=== PATIENT | male | born 1985 ===

== ENCOUNTER 2020-08-21 08:35 | Inpatient (IN) | payer OTHER, SELFPAY ==
[2020-08-21] VITALS (7 sets, daily range): BP systolic 119–157; BP diastolic 82–108; PULSE 96–104; RESP 18–24; TEMP 36.5–36.7; O2SAT 95–98; BMI 43.8
--- NOTE | 2020-08-21 09:11 | XR_ITS ---
WS: [id number] PORTABLE CHEST HISTORY: dyspnea COMPARISON: None available. Minimal areas of atelectasis in the central LEFT lung. No pneumonia. No pleural effusion or pneumotho rax. Cardiac size: Moderately enlarged cardiac silhouette. Mediastinum/Aorta: Normal mediastinum. No osseous abnormality seen. XR/XR chest 1V portable [id number] IMPRESSION: Enlarged cardiac silhouette. Correlate for possible pericardial effusion by ech ocardiography.
[2020-08-21 09:28] LABS: Basophils % 0.3 %; Eosinophils # 0.1 10^3/uL (0.0-0.8); Hematocrit 46.3 % (42.0-52.0); Hemoglobin 14.8 g/dL (11.7-16.6); Lymphocytes % 27.8 %; Mean Corpuscular Hemoglobin 28.8 pg (28.0-34.0); Mean Corpuscular Volume 90.1 fL (80-94); Mean Platelet Volume 10.9 fL (7.4-10.4); Monocytes # 0.7 10^3/uL (0.2-0.9); Monocytes % 9.8 %; Neutrophils # 4.19 10^3/uL (1.8-7.7); Neutrophils % 59.5 %; Nucleated Red Blood Cells % 0 %; Platelet Count 227 10^3/cmm (130-400); Red Blood Count 5.14 10^6/uL (4.1-5.3); Red Cell Distribution Width 13.5 % (12.1-15.1)
[2020-08-21 09:33] LABS: Fibrinogen 495 mg/dL (174-498)
[2020-08-21 09:34] LABS: Alanine Aminotransferase 26 U/L (0-41); Albumin Level 3.8 g/dL (3.5-5.2); Alkaline Phosphatase 125 IU/L (40-130); Aspartate Amino Transferase 29 U/L (0-40); Blood Urea Nitrogen 24 mg/dL (6-20); C Reactive Protein 9.7 mg/L (0.0-4.9); Calcium 9.1 mg/dL (8.5-10.5); Carbon Dioxide 29 mmol/L (22-29); Chloride 95 mmol/L (98-107); Ferritin 100 ng/mL (30-400); Globulin 3.2 g/dL (1.3-4.6); Glomerular Filtration Rate 128.3 mL/min (90-130); Glucose 296 mg/dL (65-115); Osmolality Calculated 289 mOsm/kg (285-295); Sodium 132 mmol/L (136-145); Total Bilirubin 0.3 mg/dL (0.15-1.2)
--- NOTE | 2020-08-21 09:34 | ED_ITS ---
HPI - Chest Pain General: Chief Complaint: Chest Pain Stated Complaint: CHEST PAIN/ SOB/ COUGH Time Seen by Provider: 08/21/20 08:37 History of Present Illness: HPI narrative: 34-year-old male presents to the emergency room with complaint of shortness of breath the last few days. Is been getting progressively worsening. He is former IV drug user. 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 He has recently had any chest pain he denies any productive cough denies any fever. He is not had any flulike symptoms. He has had a significant cough and shortness of breath not had any chest pain recently. MD complaint: other (Dyspnea on exertion) Onset (ago): day(s) (3) Timing of current episode: constant and increasing Prior episodes: Yes Onset: during exertion Severity: severe Relieving factors: rest Exacerbating factors: exertion Associated symptoms: Reports dyspnea and leg edema; Deny abdominal pain, diaphoresis, fever(s), nausea, palpitations, sense of impending doom, syncope or vomiting Treatment prior to arrival: none Review of Systems Const: Denies: fever(s) or diaphoresis ENMT: Denies: throat pain, ear or mastoid pain, nasal discharge or nasal congestion Card: Denies: palpitations or syncope Resp: Reports: dyspnea GI: Denies: abdominal pain, nausea or vomiting : Denies: flank pain, dysuria, urinary frequency or urinary urgency Skin/Breast: Denies: rash or pruritus PFS ED PFSH: Medical History Cardiomyopathy IV drug abuse Morbid obesity Obstructive sleep apnea Type 2 diabetes mellitus Family History Other CAD (coronary artery disease) Denies family history of Chronic kidney disease (CKD) Social History Smoking and tobacco status: former smoker Alcohol intake: former Substance/Drug Use: current Substance/Drug use type: Marijuana Household members: family Housing: House Physical Exam Const: COMMON NORMALS: no acute distress GENERAL APPEARANCE: cooperative and comfortable ORIENTATION/CONSCIOUSNESS: Yes awake, Yes oriented to person, Yes oriented to place and Yes oriented to time HENMT: COMMON NORMALS: normocephalic, atraumatic and hearing grossly normal bilaterally HEAD & SCALP: normocephalic and atraumatic Neck/C-Spine: COMMON NORMALS: no JVD Resp: COMMON NORMALS: normal respiratory effort, No retractions, No use of accessory muscles and clear to auscultation bilaterally AUSCULTATION: clear to auscultation bilaterally Cardio: COMMON NORMALS: no JVD, regular rate, regular rhythm and No murmurs present (Cardio) RATE: regular rate RHYTHM: regular rhythm GI: COMMON NORMALS: Soft to palpation and No hepatosplenomegaly present AUSCULTATION: Yes normoactive bowel sounds PALPATION: Yes Soft to palpation, No Tenderness to palpation present (GI), No Guarding due to palpation present (GI) and Yes No hepatosplenomegaly present Extremity: GENERAL: Yes edema Neuro: SENSORIUM/ORIENTATION: Yes oriented to person, Yes oriented to place and Yes oriented to time Skin: COMMON NORMALS: no rashes or lesions noted GENERAL SKIN EXAM: no rashes or lesions noted Course Vital Signs: Vital signs: Vital Signs Temperature 97.9 F 08/23/20 20:07 Pulse Rate 81 08/24/20 02:39 Respiratory Rate 13 08/24/20 02:39 Blood Pressure 107/79 08/24/20 02:39 Pulse Oximetry 94 08/24/20 02:39 MDM - Chest Pain MDM Narrative: Medical decision making narrative: Chest x-ray shows si gnificant cardiac enlargement. Echocardiogram shows a estimated 25% EF, no pericardial effusions. Patient stated he has had congestive heart failure issues in the past, however his symptoms have markedly worsens in the last 2 to 3 days. Clinically suspect this represents to the significant worsening of his cardiac status. He has not hypoxia and dyspnea in the ER but no orthopnea no significant swelling increase. Discussed with Dr. Velarde will admit. Lab Data: Labs: Lab Results 08/21/20 08/21/20 08/21/20 Range/Units 07:44 07:44 07:44 WBC 7.0 (4.0-10.0) 10^3/ uL RBC 5.14 (4.1-5.3) 10^6/u L Hgb 14.8 (11.7-16.6) g/dL Hct 46.3 (42.0-52.0) % MCV 90.1 (80-94) fL MCH 28.8 (28.0-34.0) pg MCHC 32.0 (30.0-36.0) g/dL RDW 13.5 (12.1-15.1) % Plt Count 227 (130-400) 10^3/c mm MPV 10.9 H (7.4-10.4) fL Neut % (Auto) 59.5 % Lymph % (Auto) 27.8 % [place] % (Auto) 9.8 % Eos % (Auto) 2.0 % Baso % (Auto) 0.3 % Neut # (Auto) 4.19 (1.8-7.7) 10^3/u L Lymph # (Auto) 2.0 (0.8-4.8) 10^3/u L [place] # (Auto) 0.7 (0.2-0.9) 10^3/u L Eos # (Auto) 0.1 (0.0-0.8) 10^3/u L Baso # (Auto) 0.0 (0.0-0.1) 10^3/u L Nucleated RBC % (a uto) 0 % Nucleated RBCs # 0.0 /100WBC Fibrinogen 495 (174-498) mg/dL D-Dimer 0.32 (0-0.59) ug/mIFE U Specimen Type Sample Site ABG pH (7.35-7.45) ABG pCO2 (35-45) mmHg ABG pO2 (80.0-100.0) mmH g ABG HCO3 (22-26) mmol/L ABG Base Excess (-2.0-2.0) mmol/ L Rey Test Hematocrit (42-52) % O2 Delivery Device FiO2 % Horse Exerciser ID Sodium 132 L (136-145) mmol/L Potassium 4.0 (3.5-5.1) mmol/L Chloride 95 L (98-107) mmol/L Carbon Dioxide 29 (22-29) mmol/L Anion Gap 12.0 (5-19) BUN 24 H (6-20) mg/dL Creatinine 0.7 (0.7-1.2) mg/dL GFR Calculation 128.3 (90-130) mL/min Glucose 296 H (65-115) mg/dL Calculated Osmolal ity 289 (285-295) mOsm/k g Lactic Acid (0.5-2.2) mmol/L Calcium 9.1 (8.5-10.5) mg/dL Iron (59-158) ug/dL TIBC mcg/dl % Saturation (20-50) % Unsat Iron Binding (112-347) ug/dL Ferritin 100 (30-400) ng/mL Total Bilirubin 0.3 (0.15-1.2) mg/dL GGT (8-61) U/L AST 29 (0-40) U/L ALT 26 (0-41) U/L Alkaline Phosphata se 125 (40-130) IU/L Troponin T Baselin e (0-15) ng/L Troponin T 120 Min [place] (0-15) ng/L Delta Troponin T (0-10) ABS# C-Reactive Protein 9.7 H (0.0-4.9) mg/L Total Protein 7.0 (6.6-8.7) g/dL Albumin 3.8 (3.5-5.2) g/dL Globulin 3.2 (1.3-4.6) g/dL Carcinoembryonic A g Vitamin B12 (232-1245) pg/mL Folate (4.5-32.2) ng/mL Procalcitonin (0-0.5) ng/mL TSH (0.27-4.20) uIU/ mL Ethyl Alcohol (0-10) mg/dL Hepatitis A IgM Ab (Nonreactive) Hep Bs Antigen (Nonreactive) Hep Bs Antibody (0-8.5) Hep B Core Total A b (Nonreactive) Hepatitis C Antibo dy (Nonreactive) HIV 1&2 Ab & HIV 1 Ag (Non-Reactiv) HIV 1&2 Antibody (Non-Reactiv) SARS-CoV-2 RNA (RT -PCR) (NOT DETECTED) SARS-CoV-2 Ag (Rap id) (Negative) 08/21/20 08/21/20 08/21/20 Range/Units 07:44 07:44 07:44 WBC (4.0-10.0) 10^3/ uL RBC (4.1-5.3) 10^6/u L Hgb (11.7-16.6) g/dL Hct (42.0-52.0) % MCV (80-94) fL MCH (28.0-34.0) pg MCHC (30.0-36.0) g/dL RDW (12.1-15.1) % Plt Count (130-400) 10^3/c mm MPV (7.4-10.4) fL Neut % (Auto) % Lymph % (Auto) % [place] % (Auto) % Eos % (Auto) % Baso % (Auto) % Neut # (Auto) (1.8-7.7) 10^3/u L Lymph # (Auto) (0.8-4.8) 10^3/u L [place] # (Auto) (0.2-0.9) 10^3/u L Eos # (Auto) (0.0-0.8) 10^3/u L Baso # (Auto) (0.0-0.1) 10^3/u L Nucleated RBC % (a uto) % Nucleated RBCs # /100WBC Fibrinogen (174-498) mg/dL D-Dimer (0-0.59) ug/mIFE U Specimen Type Sample Site ABG pH (7.35-7.45) ABG pCO2 (35-45) mmHg ABG pO2 (80.0-100.0) mmH g ABG HCO3 (22-26) mmol/L ABG Base Excess (-2.0-2.0) mmol/ L Rey Test Hematocrit (42-52) % O2 Delivery Device FiO2 % Horse Exerciser ID Sodium (136-145) mmol/L Potassium (3.5-5.1) mmol/L Chloride (98-107) mmol/L Carbon Dioxide (22-29) mmol/L Anion Gap (5-19) BUN (6-20) mg/dL Creatinine (0.7-1.2) mg/dL GFR Calculation (90-130) mL/min Glucose (65-115) mg/dL Calculated Osmolal ity (285-295) mOsm/k g Lactic Acid (0.5-2.2) mmol/L Calcium (8.5-10.5) mg/dL Iron (59-158) ug/dL TIBC mcg/dl % Saturation (20-50) % Unsat Iron Binding (112-347) ug/dL Ferritin (30-400) ng/mL Total Bilirubin (0.15-1.2) mg/dL GGT (8-61) U/L AST (0-40) U/L ALT (0-41) U/L Alkaline Phosphata se (40-130) IU/L Troponin T Baselin e 20 H (0-15) ng/L Troponin T 120 Min [place] (0-15) ng/L Delta Troponin T (0-10) ABS# C-Reactive Protein (0.0-4.9) mg/L Total Protein (6.6-8.7) g/dL Albumin (3.5-5.2) g/dL Globulin (1.3-4.6) g/dL Carcinoembryonic A g Cancelled Vitamin B12 (232-1245) pg/mL Folate (4.5-32.2) ng/mL Procalcitonin (0-0.5) ng/mL TSH (0.27-4.20) uIU/ mL Ethyl Alcohol < 10 (0-10) mg/dL Hepatitis A IgM Ab (Nonreactive) Hep Bs Antigen (Nonreactive) Hep Bs Antibody (0-8.5) Hep B Core Total A b (Nonreactive) Hepatitis C Antibo dy (Nonreactive) HIV 1&2 Ab & HIV 1 Ag (Non-Reactiv) HIV 1&2 Antibody (Non-Reactiv) SARS-CoV-2 RNA (RT -PCR) (NOT DETECTED) SARS-CoV-2 Ag (Rap id) (Negative) 08/21/20 08/21/20 08/21/20 Range/Units 07:44 07:44 07:44 WBC (4.0-10.0) 10^3/ uL RBC (4.1-5.3) 10^6/u L Hgb (11.7-16.6) g/dL Hct (42.0-52.0) % MCV (80-94) fL MCH (28.0-34.0) pg MCHC (30.0-36.0) g/dL RDW (12.1-15.1) % Plt Count (130-400) 10^3/c mm MPV (7.4-10.4) fL Neut % (Auto) % Lymph % (Auto) % [place] % (Auto) % Eos % (Auto) % Baso % (Auto) % Neut # (Auto) (1.8-7.7) 10^3/u L Lymph # (Auto) (0.8-4.8) 10^3/u L [place] # (Auto) (0.2-0.9) 10^3/u L Eos # (Auto) (0.0-0.8) 10^3/u L Baso # (Auto) (0.0-0.1) 10^3/u L Nucleated RBC % (a uto) % Nucleated RBCs # /100WBC Fibrinogen (174-498) mg/dL D-Dimer (0-0.59) ug/mIFE U Specimen Type Sample Site ABG pH (7.35-7.45) ABG pCO2 (35-45) mmHg ABG pO2 (80.0-100.0) mmH g ABG HCO3 (22-26) mmol/L ABG Base Excess (-2.0-2.0) mmol/ L Rey Test Hematocrit (42-52) % O2 Delivery Device FiO2 % Horse Exerciser ID Sodium (136-145) mmol/L Potassium (3.5-5.1) mmol/L Chloride (98-107) mmol/L Carbon Dioxide (22-29) mmol/L Anion Gap (5-19) BUN (6-20) mg/dL Creatinine (0.7-1.2) mg/dL GFR Calculation (90-130) mL/min Glucose (65-115) mg/dL Calculated Osmolal ity (285-295) mOsm/k g Lactic Acid (0.5-2.2) mmol/L Calcium (8.5-10.5) mg/dL Iron (59-158) ug/dL TIBC mcg/dl % Saturation (20-50) % Unsat Iron Binding (112-347) ug/dL Ferritin (30-400) ng/mL Total Bilirubin (0.15-1.2) mg/dL GGT 70 H (8-61) U/L AST (0-40) U/L ALT (0-41) U/L Alkaline Phosphata se (40-130) IU/L Troponin T Baselin e (0-15) ng/L Troponin T 120 Min [place] (0-15) ng/L Delta Troponin T (0-10) ABS# C-Reactive Protein (0.0-4.9) mg/L Total Protein (6.6-8.7) g/dL Albumin (3.5-5.2) g/dL Globulin (1.3-4.6) g/dL Carcinoembryonic A g Vitamin B12 382 (232-1245) pg/mL Folate (4.5-32.2) ng/mL Procalcitonin (0-0.5) ng/mL TSH (0.27-4.20) uIU/ mL Ethyl Alcohol (0-10) mg/dL Hepatitis A IgM Ab Non-reactive (Nonreactive) Hep Bs Antigen Non-reactive (Nonreactive) Hep Bs Antibody 3.5 (0-8.5) Hep B Core Total A b Non-reactive (Nonreactive) Hepatitis C Antibo dy Non-reactive (Nonreactive) HIV 1&2 Ab & HIV 1 Ag Non-reactive (Non-Reactiv) HIV 1&2 Antibody Non-reactive (Non-Reactiv) SARS-CoV-2 RNA (RT -PCR) (NOT DETECTED) SARS-CoV-2 Ag (Rap id) (Negative) 08/21/20 08/21/20 08/21/20 Range/Units 07:44 09:26 09:36 WBC (4.0-10.0) 10^3/ uL RBC (4.1-5.3) 10^6/u L Hgb (11.7-16.6) g/dL Hct (42.0-52.0) % MCV (80-94) fL MCH (28.0-34.0) pg MCHC (30.0-36.0) g/dL RDW (12.1-15.1) % Plt Count (130-400) 10^3/c mm MPV (7.4-10.4) fL Neut % (Auto) % Lymph % (Auto) % [place] % (Auto) % Eos % (Auto) % Baso % (Auto) % Neut # (Auto) (1.8-7.7) 10^3/u L Lymph # (Auto) (0.8-4.8) 10^3/u L [place] # (Auto) (0.2-0.9) 10^3/u L Eos # (Auto) (0.0-0.8) 10^3/u L Baso # (Auto) (0.0-0.1) 10^3/u L Nucleated RBC % (a uto) % Nucleated RBCs # /100WBC Fibrinogen (174-498) mg/dL D-Dimer (0-0.59) ug/mIFE U Specimen Type Arterial Sample Site Radial, right ABG pH 7.44 (7.35-7.45) ABG pCO2 43.9 (35-45) mmHg ABG pO2 73.8 L (80.0-100.0) mmH g ABG HCO3 29.4 H (22-26) mmol/L ABG Base Excess 4.4 H (-2.0-2.0) mmol/ L Rey Test Pos Hematocrit 45.5 (42-52) % O2 Delivery Device Room air FiO2 21.0 % Horse Exerciser ID Ed Sodium (136-145) mmol/L Potassium (3.5-5.1) mmol/L Chloride (98-107) mmol/L Carbon Dioxide (22-29) mmol/L Anion Gap (5-19) BUN (6-20) mg/dL Creatinine (0.7-1.2) mg/dL GFR Calculation (90-130) mL/min Glucose (65-115) mg/dL Calculated Osmolal ity (285-295) mOsm/k g Lactic Acid 1.4 (0.5-2.2) mmol/L Calcium (8.5-10.5) mg/dL Iron (59-158) ug/dL TIBC mcg/dl % Saturation (20-50) % Unsat Iron Binding (112-347) ug/dL Ferritin (30-400) ng/mL Total Bilirubin (0.15-1.2) mg/dL GGT (8-61) U/L AST (0-40) U/L ALT (0-41) U/L Alkaline Phosphata se (40-130) IU/L Troponin T Baselin e (0-15) ng/L Troponin T 120 Min [place] (0-15) ng/L Delta Troponin T (0-10) ABS# C-Reactive Protein (0.0-4.9) mg/L Total Protein (6.6-8.7) g/dL Albumin (3.5-5.2) g/dL Globulin (1.3-4.6) g/dL Carcinoembryonic A g Vitamin B12 (232-1245) pg/mL Folate 12.7 (4.5-32.2) ng/mL Procalcitonin (0-0.5) ng/mL TSH (0.27-4.20) uIU/ mL Ethyl Alcohol (0-10) mg/dL Hepatitis A IgM Ab (Nonreactive) Hep Bs Antigen (Nonreactive) Hep Bs Antibody (0-8.5) Hep B Core Total A b (Nonreactive) Hepatitis C Antibo dy (Nonreactive) HIV 1&2 Ab & HIV 1 Ag (Non-Reactiv) HIV 1&2 Antibody (Non-Reactiv) SARS-CoV-2 RNA (RT -PCR) (NOT DETECTED) SARS-CoV-2 Ag (Rap id) (Negative) 08/21/20 08/21/20 08/21/20 Range/Units 10:50 12:42 12:42 WBC (4.0-10.0) 10^3/ uL RBC (4.1-5.3) 10^6/u L Hgb (11.7-16.6) g/dL Hct (42.0-52.0) % MCV (80-94) fL MCH (28.0-34.0) pg MCHC (30.0-36.0) g/dL RDW (12.1-15.1) % Plt Count (130-400) 10^3/c mm MPV (7.4-10.4) fL Neut % (Auto) % Lymph % (Auto) % [place] % (Auto) % Eos % (Auto) % Baso % (Auto) % Neut # (Auto) (1.8-7.7) 10^3/u L Lymph # (Auto) (0.8-4.8) 10^3/u L [place] # (Auto) (0.2-0.9) 10^3/u L Eos # (Auto) (0.0-0.8) 10^3/u L Baso # (Auto) (0.0-0.1) 10^3/u L Nucleated RBC % (a uto) % Nucleated RBCs # /100WBC Fibrinogen (174-498) mg/dL D-Dimer (0-0.59) ug/mIFE U Specimen Type Sample Site ABG pH (7.35-7.45) ABG pCO2 (35-45) mmHg ABG pO2 (80.0-100.0) mmH g ABG HCO3 (22-26) mmol/L ABG Base Excess (-2.0-2.0) mmol/ L Rey Test Hematocrit (42-52) % O2 Delivery Device FiO2 % Horse Exerciser ID Sodium (136-145) mmol/L Potassium (3.5-5.1) mmol/L Chloride (98-107) mmol/L Carbon Dioxide (22-29) mmol/L Anion Gap (5-19) BUN (6-20) mg/dL Creatinine (0.7-1.2) mg/dL GFR Calculation (90-130) mL/min Glucose (65-115) mg/dL Calculated Osmolal ity (285-295) mOsm/k g Lactic Acid (0.5-2.2) mmol/L Calcium (8.5-10.5) mg/dL Iron 56 L (59-158) ug/dL TIBC 338 mcg/dl % Saturation 16.5 L (20-50) % Unsat Iron Binding 282 (112-347) ug/dL Ferritin (30-400) ng/mL Total Bilirubin (0.15-1.2) mg/dL GGT (8-61) U/L AST (0-40) U/L ALT (0-41) U/L Alkaline Phosphata se (40-130) IU/L Troponin T Baselin e (0-15) ng/L Troponin T 120 Min [place] 19.07 H (0-15) ng/L Delta Troponin T -0.93 L (0-10) ABS# C-Reactive Protein (0.0-4.9) mg/L Total Protein (6.6-8.7) g/dL Albumin (3.5-5.2) g/dL Globulin (1.3-4.6) g/dL Carcinoembryonic A g Vitamin B12 (232-1245) pg/mL Folate (4.5-32.2) ng/mL Procalcitonin 0.15 (0-0.5) ng/mL TSH (0.27-4.20) uIU/ mL Ethyl Alcohol (0-10) mg/dL Hepatitis A IgM Ab (Nonreactive) Hep Bs Antigen (Nonreactive) Hep Bs Antibody (0-8.5) Hep B Core Total A b (Nonreactive) Hepatitis C Antibo dy (Nonreactive) HIV 1&2 Ab & HIV 1 Ag (Non-Reactiv) HIV 1&2 Antibody (Non-Reactiv) SARS-CoV-2 RNA (RT -PCR) (NOT DETECTED) SARS-CoV-2 Ag (Rap id) Negative (Negative) 08/21/20 08/21/20 Range/Units 12:42 12:45 WBC (4.0-10.0) 10^3/ uL RBC (4.1-5.3) 10^6/u L Hgb (11.7-16.6) g/dL Hct (42.0-52.0) % MCV (80-94) fL MCH (28.0-34.0) pg MCHC (30.0-36.0) g/dL RDW (12.1-15.1) % Plt Count (130-400) 10^3/c mm MPV (7.4-10.4) fL Neut % (Auto) % Lymph % (Auto) % [place] % (Auto) % Eos % (Auto) % Baso % (Auto) % Neut # (Auto) (1.8-7.7) 10^3/u L Lymph # (Auto) (0.8-4.8) 10^3/u L [place] # (Auto) (0.2-0.9) 10^3/u L Eos # (Auto) (0.0-0.8) 10^3/u L Baso # (Auto) (0.0-0.1) 10^3/u L Nucleated RBC % (a uto) % Nucleated RBCs # /100WBC Fibrinogen (174-498) mg/dL D-Dimer (0-0.59) ug/mIFE U Specimen Type Sample Site ABG pH (7.35-7.45) ABG pCO2 (35-45) mmHg ABG pO2 (80.0-100.0) mmH g ABG HCO3 (22-26) mmol/L ABG Base Excess (-2.0-2.0) mmol/ L Rey Test Hematocrit (42-52) % O2 Delivery Device FiO2 % Horse Exerciser ID Sodium (136-145) mmol/L Potassium (3.5-5.1) mmol/L Chloride (98-107) mmol/L Carbon Dioxide (22-29) mmol/L Anion Gap (5-19) BUN (6-20) mg/dL Creatinine (0.7-1.2) mg/dL GFR Calculation (90-130) mL/min Glucose (65-115) mg/dL Calculated Osmolal ity (285-295) mOsm/k g Lactic Acid (0.5-2.2) mmol/L Calcium (8.5-10.5) mg/dL Iron (59-158) ug/dL TIBC mcg/dl % Saturation (20-50) % Unsat Iron Binding (112-347) ug/dL Ferritin (30-400) ng/mL Total Bilirubin (0.15-1.2) mg/dL GGT (8-61) U/L AST (0-40) U/L ALT (0-41) U/L Alkaline Phosphata se (40-130) IU/L Troponin T Baselin e (0-15) ng/L Troponin T 120 Min [place] (0-15) ng/L Delta Troponin T (0-10) ABS# C-Reactive Protein (0.0-4.9) mg/L Total Protein (6.6-8.7) g/dL Albumin (3.5-5.2) g/dL Globulin (1.3-4.6) g/dL Carcinoembryonic A g Vitamin B12 (232-1245) pg/mL Folate (4.5-32.2) ng/mL Procalcitonin (0-0.5) ng/mL TSH 1.63 (0.27-4.20) uIU/ mL Ethyl Alcohol (0-10) mg/dL Hepatitis A IgM Ab (Nonreactive) Hep Bs Antigen (Nonreactive) Hep Bs Antibody (0-8.5) Hep B Core Total A b (Nonreactive) Hepatitis C Antibo dy (Nonreactive) HIV 1&2 Ab & HIV 1 Ag (Non-Reactiv) HIV 1&2 Antibody (Non-Reactiv) SARS-CoV-2 RNA (RT -PCR) Not detected (NOT DETECTED) SARS-CoV-2 Ag (Rap id) (Negative) Discharge Plan Discharge Patient Disposition: Admitted As Inpatient Admit Provider: Sandoval Gracia Clinical Impression: CHF (congestive heart failure), NYHA class III, Cardiomyopathy, Type 2 diabetes mellitus, Morbid obesity, Hypoxia Condition: Stable Interventions: ED Discharge Assessment Last Done: 08/21/20 14:54 ED Charges Last Done: 08/21/20 14:54 Discharge Date/Time: 08/21/20 15:15 Coding Level of Care Code ED Textile Engineer for Chg Fwd Exam Comprehensive
[2020-08-21 09:36] LABS: ABG PCO2 43.9 mmHg (35-45); ABG PH Result 7.44 (7.35-7.45); Arterial Blood Gas Hematocrit 45.5 % (42-52); Base Excess ABG 4.4 mmol/L (-2.0-2.0); Blood Gas Allen Test Pos; Blood Gas Sample Type Arterial; HCO3 ABG 29.4 mmol/L (22-26); PO2 ABG 73.8 mmHg (80.0-100.0)
[2020-08-21 09:36] LABS: D Dimer 0.32 ug/mIFEU (0-0.59)
[2020-08-21 09:37] LABS: Blood Gas Operator Identificat ED; Blood Gas Sample Site Radial, right; Oxygen Device ROOM AIR
--- NOTE | 2020-08-21 09:46 | PC.NURSE ---
Pt complaining that he couldn't breath. O2 90-91%. Sat pt up in bed, 02 increased to 96% room air.
--- NOTE | 2020-08-21 09:54 | USCV_ITS ---
MenjivarRoberto Age: 34 Gender: M : 1985 Exam Date: 08/21/2020 10:56 Ordering Phys: Sy Desai DO Technologist: Ruth Bright Exam Location: [facility] – [place] Indication: PC EFFUSION BP: / HR: 101 Rhythm: Sinus Technical Quality: Fair MEASUREMENTS (Male / Female) Normal Values 2D ECHO LV Diastolic Diameter PLAX 5.9 cm 4.2 - 5.9 / 3.9 - 5.3 cm LV Systolic Diameter PLAX 5.8 cm IVS Diastolic Thickness 0.8 cm 0.6 - 1.0 / 0.6 - 0.9 cm IVS Systolic Thickness 1.0 cm LVPW Diastolic Thickness 1.2 cm 0.6 - 1.0 / 0.6 - 0.9 cm LVPW Systolic Thickness 1.2 cm LVOT Diameter 2.1 cm LV Ejection Fraction 2D Teich 2.7 % LV Ejection Fraction MOD 2C 37.6 % LV Ejection Fraction 2C AL 39.2 % LA Diameter 3.7 cm LA Width 4.6 cm LA Height 5.9 cm RA Width 5.4 cm RA Height 5.4 cm M-MODE LV Diastolic Diameter MM 6.2 cm 4.2 - 5.9 / 3.9 - 5.3 cm LV Systolic Diameter MM 5.3 cm LV Ejection Fraction MM Teich 29.8 % IVS Diastolic Thickness MM 1.0 cm 0.6 - 1.0 / 0.6 - 0.9 cm IVS Systolic Thickness MM 0.7 cm LVPW Diastolic Thickness MM 1.0 cm 0.6 - 1.0 / 0.6 - 0.9 cm LVPW Systolic Thickness MM 1.1 cm Aortic Annulus Diameter 3.3 cm LA Ao Ratio MM 1.0 MV E Point Septal Separation 1.6 cm DOPPLER AV Peak Velocity 86.0 cm/s LVOT Peak Velocity 72.0 cm/s AV Area Cont Eq vti 3.2 cm squared AV Area Cont Eq pk 3.0 cm squared MV Peak Velocity 126.0 cm/s MV Area PHT 5.8 cm squared Mitral E to A Ratio 10.2 MV E' Velocity 58.0 cm/s Mitral E to MV E' Ratio 19.9 Mitral E to LV E' Lateral Ratio 19.6 Mitral E to LV E' Septal Ratio 20.7 TR Peak Velocity 231.0 cm/s TR Peak Gradient 21.3 mmHg Right Atrial Pressure 3.0 mmHg Pulmonary Artery Systolic Pressu 24.3 mmHg PV Peak Velocity 69.3 cm/s RV Acceleration Time 0.1 s FINDINGS Left Ventricle Mildly dilated left ventricle. diffuse hypokinesia of the left ventricle with an ejection fraction of 38%. Right Ventricle Mildly dilated right ventricle with a slightly reduced ejection fraction Right Atrium Moderately increased right atrial size. Left Atrium Moderately increased left atrial size. Mitral Valve Thickened mitral valve. Mild mitral valve regurgitation. Aortic Valve Thickened aortic valve. Tricuspid Valve No gross abnormalities noted.mild tricuspid valve regurgitation. Pulmonic Valve Pulmonic valve not well visualized. Pericardium No pericardial effusion. Aorta Normal aortic annulus size. CONCLUSIONS Mildly dilated left ventricle. Diffuse hypokinesia of the left ventricle with an ejection fraction of 38%. Mildly dilated right ventricle with a slightly reduced ejection fraction. Moderate biatrial enlargement Thickened aortic and mitral valves Mild tricuspid valve regurgitation. Mild mitral regurgitation Normal pulmonary artery pressure There is no pericardial effusion. There are no intracardiac masses. No previous study is available for comparison. Technically difficult study because of the poor ultrasonic window Dr Emiliano Branch MD FACC (Electronically Signed) Final Date: 21 August 2020 17:07 S
[2020-08-21 10:00] LABS: Lactic Sepsis W/Reflex 1.4 mmol/L (0.5-2.2)
--- NOTE | 2020-08-21 10:11 | ECG_ITS ---
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 Measurements Intervals [place] Rate: 104 P: 61 AR: 148 QRS: -58 QRSD: 98 T: 54 QT: 426 QTc: 562 Interpretive Statements SINUS TACHYCARDIA LEFT ATRIAL ENLARGEMENT [-0.15mV P WAVE IN V1/V2] LEFT ANTERIOR FASCICULAR BLOCK [QRS AXIS <= -45, QR IN I, RS IN II] No previous ECG available for comparison Electronically Signed On 08-21-2020 17:58:41 CDT by Kathleen Cheema M.D. [id number]
--- NOTE | 2020-08-21 11:16 | PC.NURSE ---
US AT BEDSIDE WITH PATIENT FOR ECHO
--- NOTE | 2020-08-21 11:27 | ECG_ITS ---
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 Measurements Intervals [place] Rate: 96 P: 57 MN: 180 QRS: -70 QRSD: 96 T: 59 QT: 389 QTc: 492 Interpretive Statements SINUS RHYTHM LEFT ATRIAL ENLARGEMENT [-0.15mV P WAVE IN V1/V2] LEFT AXIS DEVIATION [QRS AXIS < -30] Compared to ECG 08/21/2020 08:39:51 Left-axis deviation now present Sinus tachycardia no longer present Left anterior fascicular block no longer present Electronically Signed On 08-21-2020 17:56:39 CDT by Kathleen Cheema M.D. [id number]
[2020-08-21 11:31] LABS: SARS Covid-2 Antigen Negative (Negative)
[2020-08-21 12:27] LABS: Troponin(5th) Baseline 20 ng/L (0-15)
[2020-08-21 13:19] LABS: Troponin 5 2HR 19.07 ng/L (0-15)
--- NOTE | 2020-08-21 13:27 | ECG_ITS ---
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 Measurements Intervals [place] Rate: 97 P: 54 IA: 152 QRS: -59 QRSD: 96 T: 61 QT: 396 QTc: 504 Interpretive Statements SINUS RHYTHM LEFT ATRIAL ENLARGEMENT [-0.15mV P WAVE IN V1/V2] LEFT AXIS DEVIATION [QRS AXIS < -30] Compared to ECG 08/21/2020 11:47:30 No significant changes Electronically Signed On 08-21-2020 18:14:48 CDT by Kathleen Cheema M.D. [id number]
[2020-08-21 13:30] LABS: Troponin 5 2HR Delta -0.93 ABS# (0-10)
[2020-08-21 13:45] LABS: Procalcitonin 0.15 ng/mL (0-0.5)
[2020-08-21 13:46] LABS: Thyroid Stimulating Hormone 1.63 uIU/mL (0.27-4.20)
[2020-08-21 13:57] LABS: Iron 56 ug/dL (59-158); Percent Saturation 16.5 % (20-50); Total Iron Binding Capacity 338 mcg/dl; Unsaturated Iron Binding 282 ug/dL (112-347)
[2020-08-21] MEDS: FUROsemide 10 mg/mL SDV 4mL 40 MG IVP ×2 (14:07→17:09)
--- NOTE | 2020-08-21 14:28 | PM.HP ---
Providers/Chief Complaint Admitting Physician: Sandoval Gracia MD Chief Complaint: CHEST PAIN/ SOB/ COUGH History of Present Illness Roberto Menjivar is a 34 year old male with past medical history of IV drug abuser with last apparent drug use 3 years ago, possible cardiomyopathy, type 2 diabetes mellitus current marijuana use who presented to the ER today with worsening shortness of breath on exertion for last 3 days. He stated since today morning he started having more chest tightness and difficulty in breathing so he came to the ER. 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 He states every day usually he can work from 12 to 14 hours without any difficulty but for last 3 days he has been having more difficulty in breathing than usual. He does not follow-up with any primary care provider and is only on 2 medications at present. He states he was worked up with a possible treadmill stress test 3 years ago and was apparently told that his weak heart is because of poor blood supply(though documents are not present). He denies of having any fever, nausea, vomiting, flulike symptoms, any recent exposure to known COVID-19, chest pain. Blood work in the ER showed a white count of 7000, hemoglobin of 14.8, platelet count of 227, D-dimer of 0.32, ABG showing a pH of 7.44, PCO2 43.9, PO2 of 73.8, sodium of 132, chloride of 95, BUN of 24, creatinine of 0.7, lactate of 1.4, AST/ALT of 29/26, baseline troponin of 20 with delta -0.9 in 2 hours, CRP of 9.7 with rapid COVID-19 antigen negative. Review of Systems General: Reports: 10 or more systems reviewed and unremarkable except in HPI and below Const: Denies: fever(s), chills, body aches, change in appetite, change in weight, malaise, night sweats, diaphoresis, change in sleep pattern, daytime sleepiness or snoring Eyes: Denies: change in vision, blurry vision, photophobia, eye discomfort or eye discharge ENMT: Denies: throat pain, enlarged tonsils, hoarseness, mouth pain, oral sores, dry mouth, tinnitus, nasal congestion or post nasal drip Card: Denies: chest pain, palpitations, irregular heart rhythm, edema, swelling of feet/ankles, lightheadedness, syncope, pre-syncope, dyspnea on exertion, orthopnea, leg pain with exertion or acrocyanosis Resp: Denies: dyspnea, productive cough, non-productive cough, wheezing, stridor, pain on inspiration, change in phlegm color, hemoptysis or chest congestion GI: Denies: abdominal pain, nausea, vomiting, hematemesis, coffee ground emesis, dysphagia, heartburn, diarrhea, constipation, bloating, GI cramping, change in bowel habits, pain on defecation, hematochezia or melena : Denies: flank pain, difficulty urinating, dysuria, urinary frequency, urinary urgency, urinary hesitancy, urinary dribbling, difficulty starting urination, change in urine stream, nocturia or hematuria Musc: Denies: neck pain, back pain, extremity pain, joint pain, joint swelling, joint redness, joint stiffness or limited range of motion Neuro: Denies: headache(s), numbness in extremities, weakness in extremities, sensory changes, lack of coordination, difficulty walking, frequent falls, dizziness, vertigo, confusion, Slurred speech present, difficulty communicating thoughts or seizure-like activity Psych: Denies: anxiety, depression, mood swings, panic attacks, hopelessness or irritability Endo: Denies: polyuria, polydipsia, tired all the time, cold intolerance, excessive sweating, flushing or heat intolerance Jonathan/Lymph: Denies: easy bruising or easy bleeding All/Imm: Denies: tongue swelling, facial swelling or acute wheezing Medications/Allergies Home Medications Medication Instructions Recorded Confirmed Last Taken Type insulin asp prt-insulin aspart See Rx Instructions .ROUTE .COMPLEX 08/21/20 08/21/20 08/20/20 History [Novolog Mix 70-30 U-100 Insuln] torsemide 40 mg PO DAILY 08/21/20 08/21/20 08/20/20 History Allergies Allergy/AdvReac Type Severity Reaction Status Date / Time No Known Allergies Allergy Verified 08/21/20 08:51 PFSH Acute PFSH: Medical History (Updated 08/21/20 @ 16:34 by Sandoval Gracia MD) Cardiomyopathy IV drug abuse Type 2 diabetes mellitus Family History (Updated 08/21/20 @ 16:19 by Sandoval Gracia MD) Other CAD (coronary artery disease) Denies family history of Chronic kidney disease (CKD) Social History (Updated 08/21/20 @ 16:22 by Sandoval Gracia MD) Smoking and tobacco status: former smoker Alcohol intake: former Substance/Drug Use: current Substance/Drug use type: Marijuana Household members: family Housing: House Vitals/I&O/Wt Last Vital Signs Temp 97.7 F 08/21/20 08:36 Pulse 100 08/21/20 12:50 Resp 24 H 08/21/20 12:50 BP 141/102 08/21/20 12:50 Pulse Ox 95 08/21/20 12:50 Weight last 48 hrs Weight 127.006 kg Physical Exam Narrative: EXAM NARRATIVE: General: No acute distress, AO x3, morbidly obese, anxious HEENT: PERRLA, pupils bilaterally equal and reactive Chest: Normal vesicular breath sounds, lateral lower zone fine crackle equal good air entry bilaterally CVS: S1-S2 regular, apex shifted laterally and outside, pansystolic murmur at apex 3/6 radiating to axilla, S3 gallop, no tachycardia, no gallops, no rubs Abdomen: Soft, nontender, no organomegaly, bowel sounds present Neuro: No focal deficits, no facial deformity, AO x3, power 5/5 in all limbs Data : 08/21/20 07:44 08/21/20 07:44 A&P Assessment and plan (1) Hypoxia: Status: Acute (2) CHF (congestive heart failure), NYHA class III: Status: Acute (3) Cardiomyopathy: Status: Acute (4) Type 2 diabetes mellitus: Status: Acute (5) Hyponatremia: Most likely hypervolemic hyponatremia. Diuretics as above. Continue to monitor sodium levels daily. Patient at present patient does not have any symptoms of hyponatremia. Status: Acute Additional A&P Information Hypoxia: Because of congestive heart failure: NYHA class III. Patient states she has a history of cardiomyopathy in the past but not sure what kind of cardiomyopathy. Patient does give history of IV drug abuse in the past and marijuana use at present. Check urine drug screen, alcohol level, TSH, procalcitonin, vitamin B12, HIV, hepatitis panel, folate levels. D-dimer negative so chances of PE or thromboembolic event is low. Echocardiogram done in the ER. IV Lasix 40 mg twice daily. Strict input output charting. Daily weights. Oxygen supplementation keeping saturation over 90%. Fluid restriction to 1500 cc Patient most likely requires work-up to rule out ischemic cardiomyopathy. Most likely will require Lexiscan before discharge. Patient is aware and agreeable to same. For now start patient on Coreg 6.25 mg twice daily. Will add YARA inhibitor/ARB as per the blood pressures in next 48 hours. We will also try to add spironolactone depending on the blood pressure and renal functions. Rapid Covid antigen was negative in the ER. Covid PCR to [employer] has been sent from the ER. Chances of COVID-19 pneumonia are low. Isolation precaution for now until the results come back. Type 2 diabetes mellitus: Check HbA1c, lipid panel. Insulin sliding scale at high-dose protocol. Xanax 0.25 3 times daily if needed for anxiety Carb consistent low-salt diet. Heparin for DVT prophylaxis Famotidine for PUD prophylaxis Case management consult as patient does not have any insurance at present and would most likely need a primary care provider at [facility]. Attestations Medical Necessity Statement*: Admission for more than 2 midnights because of further management and work-up of hypoxia because of congestive heart failure, COVID-19 not ruled out Time Spent in Patient Care: Greater than 35 minutes (>than 50% of time spent in counselling and/or direct pt care on unit). Coding Level of Care Code Acute Catalogue Maker for Patt Galeano Diagnoses Hypoxia R09.02 CHF (congestive heart failure), NYHA class III I50.9 Cardiomyopathy I42.9 Type 2 diabetes mellitus E11.9 Hyponatremia E87.1
--- NOTE | 2020-08-21 14:36 | PC.NURSE ---
Attempted to call report at [phone], was placed on hold for 3.5 minutes before hanging up to attend to other patients
[2020-08-21 14:44] LABS: Troponin 5 6HR 18.31 ng/L (0-15)
[2020-08-21 14:45] LABS: Troponin 5 6HR Delta -1.69 ng/L (0-12)
[2020-08-21 16:04] LABS: Glucose Point of Care 317 mg/dL (70-110)
[2020-08-21 16:49] LABS: Alcohol Level < 10 mg/dL (0-10)
[2020-08-21] MEDS: carvedilol 6.25 mg Tablet PO (17:06)
[2020-08-21] MEDS: heparin 5,000 unit/mL INJ 1 mL 5000 UNIT SUBCUT (17:08)
[2020-08-21] MEDS: famotidine 20 mg/2 mL INJ IVP (17:09)
[2020-08-21] MEDS: acetaminophen 325 mg Tablet 650 MG PO (17:09)
[2020-08-21] MEDS: ALPRAZolam 0.25 mg Tablet PO ×2 (17:11→23:14)
--- NOTE | 2020-08-21 17:27 | ECG_ITS ---
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 Measurements Intervals [place] Rate: 102 P: 56 [place]: 148 QRS: -68 QRSD: 94 T: 60 QT: 365 QTc: 476 Interpretive Statements SINUS TACHYCARDIA LEFT ATRIAL ENLARGEMENT [-0.15mV P WAVE IN V1/V2] MARKED LEFT AXIS DEVIATION [QRS AXIS < -30] Compared to ECG 08/21/2020 13:54:06 Sinus rhythm no longer present Electronically Signed On 08-21-2020 23:38:10 CDT by Kathleen Cheema M.D. [id number]
[2020-08-21 17:54] LABS: Urine Color Yellow (Yellow)
[2020-08-21 17:55] LABS: Bilirubin Urine Neg (Negative); Blood Urine Neg (Negative); Glucose Urine UA 4+ (Normal); Ketones Urine Negative (Negative); Leukocyte Esterase Urine Negative (Negative); Nitrate Urine Negative (Negative); Protein Urine Neg (Negative); Specific Gravity, Urine 1.015 (1.005-1.030); Urine Appearance Clear (CLEAR); Urobilinogen Urine Neg (Negative); pH Urine 6 (5-7)
[2020-08-21 18:00] LABS: Amphetamines Screen Urine Negative (Negative); Barbiturates Screen Urine Negative (Negative); Benzodiazepines Screen Urine Negative (Negative); Cocaine Screen Urine Negative (Negative); Opiate Screen Urine Negative (Negative); PCP Screen Urine Negative (Negative); THC Screen Urine Positive (Negative)
[2020-08-21 18:02] LABS: Add Urine Culture? No; Bacteria Urine TRACE /hpf
[2020-08-21 18:08] LABS: Gamma Glutamyl Transferase 70 U/L (8-61)
[2020-08-21 18:24] LABS: Vitamin B12 382 pg/mL (232-1245)
[2020-08-21 18:25] LABS: Folate Level 12.7 ng/mL (4.5-32.2)
[2020-08-21 18:28] LABS: Hepatitis A Antibody IgM Non-Reactive (Nonreactive); Hepatitis B Core AB, Total Non-Reactive (Nonreactive); Hepatitis B Surface AB 3.5 (0-8.5); Hepatitis B Surface Antigen Non-Reactive (Nonreactive); Hepatitis C Virus Antibody Non-Reactive (Nonreactive)
[2020-08-21 18:36] LABS: HIV 1 & 2 Antigen Non-Reactive (Non-Reactiv)
[2020-08-21 18:37] LABS: HIV 1 & 2 Antibody Non-Reactive (Non-Reactiv)
[2020-08-21 20:49] LABS: Glucose Point of Care 302 mg/dL (70-110)
[2020-08-21] MEDS: trazodone 100 mg Tablet PO (23:14)
[2020-08-22] VITALS (8 sets, daily range): BP systolic 103–130; BP diastolic 68–87; PULSE 86–99; RESP 16–28; TEMP 36.3–36.6; O2SAT 92–99
[2020-08-22] MEDS: heparin 5,000 unit/mL INJ 1 mL 5000 UNIT SUBCUT ×3 (01:25→15:40)
[2020-08-22] MEDS: acetaminophen 325 mg Tablet 650 MG PO ×2 (05:19→13:55)
[2020-08-22] MEDS: famotidine 20 mg/2 mL INJ IVP ×2 (05:20→15:40)
[2020-08-22 06:21] LABS: Glucose Point of Care 269 mg/dL (70-110)
[2020-08-22] MEDS: carvedilol 6.25 mg Tablet PO (08:58)
[2020-08-22] MEDS: FUROsemide 10 mg/mL SDV 4mL 40 MG IVP ×2 (08:59→18:05)
[2020-08-22] MEDS: ALPRAZolam 0.25 mg Tablet PO (10:03)
[2020-08-22 11:14] LABS: Glucose Point of Care 331 mg/dL (70-110)
[2020-08-22 12:30] LABS: Basophils % 0.3 %; Eosinophils # 0.1 10^3/uL (0.0-0.8); Eosinophils % 1.8 %; Hematocrit 44.9 % (42.0-52.0); Hemoglobin 14.7 g/dL (11.7-16.6); Lymphocytes # 1.8 10^3/uL (0.8-4.8); Lymphocytes % 25.1 %; Mean Corpuscular HGB Conc 32.7 g/dL (30.0-36.0); Mean Corpuscular Hemoglobin 29.3 pg (28.0-34.0); Mean Corpuscular Volume 89.4 fL (80-94); Mean Platelet Volume 10.7 fL (7.4-10.4); Monocytes # 0.6 10^3/uL (0.2-0.9); Neutrophils # 4.61 10^3/uL (1.8-7.7); Neutrophils % 64.5 %; Nucleated Red Blood Cells % 0 %; Platelet Count 249 10^3/cmm (130-400); Red Blood Count 5.02 10^6/uL (4.1-5.3); Red Cell Distribution Width 13.6 % (12.1-15.1); White Blood Count 7.1 10^3/uL (4.0-10.0)
[2020-08-22 12:54] LABS: Alanine Aminotransferase 25 U/L (0-41); Albumin Level 3.9 g/dL (3.5-5.2); Alkaline Phosphatase 101 IU/L (40-130); Anion Gap 15.4 (5-19); Aspartate Amino Transferase 26 U/L (0-40); Blood Urea Nitrogen 29 mg/dL (6-20); Calcium 9.6 mg/dL (8.5-10.5); Carbon Dioxide 28 mmol/L (22-29); Chloride 95 mmol/L (98-107); Globulin 3.5 g/dL (1.3-4.6); Glucose 379 mg/dL (65-115); Magnesium 2.1 mg/dL (1.7-2.3); Osmolality Calculated 299 mOsm/kg (285-295); Phosphorus 3.5 mg/dL (2.5-4.5); Potassium 4.4 mmol/L (3.5-5.1); Sodium 134 mmol/L (136-145); Total Bilirubin 0.5 mg/dL (0.15-1.2); Total Protein 7.4 g/dL (6.6-8.7)
--- NOTE | 2020-08-22 12:55 | PM.PN ---
Subjective Subjective: Interval history: No acute events overnight. Patient continues to remain mildly anxious. He states he does not able to sleep overnight symptomatically he states he is feeling better than yesterday. 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 Denies any chest pain, nausea, vomiting, difficulty in breathing, cough. He states his has been telling him that for last couple of years whenever he sleeps at night there are times when he is not breathing. Did discuss with him in detail regarding need for him to lose weight and obstructive sleep apnea. Vitals/I&O/Wt Last Vital Signs Temp 97.4 F L 08/22/20 11:37 Pulse 99 08/22/20 11:37 Resp 18 08/22/20 11:37 BP 130/84 08/22/20 11:37 Pulse Ox 98 08/22/20 11:37 08/21/20 08/22/20 08/22/20 22:59 06:59 14:59 Intake Total 120 / 120 Output Total 1800 / 1800 Balance -1800 / -1800 120 / 120 Weight last 48 hrs Weight 145.875 kg Weight 127.006 kg Physical Exam Narrative: EXAM NARRATIVE: General: No acute distress, AO x3, morbidly obese, anxious HEENT: PERRLA, pupils bilaterally equal and reactive Chest: Normal vesicular breath sounds, lateral lower zone fine crackle equal good air entry bilaterally CVS: S1-S2 regular, apex shifted laterally and outside, pansystolic murmur at apex 3/6 radiating to axilla, S3 gallop, no tachycardia, no gallops, no rubs Abdomen: Soft, nontender, no organomegaly, bowel sounds present Neuro: No focal deficits, no facial deformity, AO x3, power 5/5 in all limbs Data : 08/22/20 11:54 08/22/20 11:54 A&P Assessment and plan (1) Hypoxia: Status: Acute (2) CHF (congestive heart failure), NYHA class III: Status: Acute (3) Cardiomyopathy: Status: Acute (4) Type 2 diabetes mellitus: Status: Acute (5) Hyponatremia: Resolving. Most likely hypervolemic hyponatremia. Diuretics as above. Continue to monitor sodium levels daily. Patient at present patient does not have any symptoms of hyponatremia. Status: Acute (6) Morbid obesity: Status: Acute (7) Obstructive sleep apnea: Status: Acute Additional A&P Information Hypoxia: Because of congestive heart failure: NYHA class III. Patient states she has a history of cardiomyopathy in the past but not sure what kind of cardiomyopathy. Patient does give history of IV drug abuse in the past and marijuana use at present. Drug screen, alcohol level negative. TSH, procalcitonin, vitamin B12, folate levels normal, HIV, hepatitis panel negative. Echocardiogram shows an EF of 38% with global diffuse hypokinesia, dilated LV, dilated RV with reduced RV systolic functions, moderately dilated RA and LA, mild MR, mild TR. IV Lasix 40 mg twice daily. Strict input output charting. Patient is around 1700 cc negative since admission Daily weights. Oxygen supplementation keeping saturation over 90%. Fluid restriction to 1500 cc Patient most likely requires work-up to rule out ischemic cardiomyopathy. Most likely will require Lexiscan before discharge. Patient is aware and agreeable to same. Patient has tolerated Coreg well but his heart rate continues to remain on the higher side. We will switch Coreg to metoprolol 50 mg twice daily for better heart rate control. Creatinine is stable will add lisinopril 10 mg daily. Will uptitrate lisinopril as per the renal functions and blood pressure and try to add spironolactone if possible. Rapid Covid antigen was negative in the ER. Covid PCR to [facility] has been sent from the ER. Chances of COVID-19 pneumonia are low. Isolation precaution for now until the results come back. Type 2 diabetes mellitus: Check HbA1c, lipid panel. Insulin sliding scale at high-dose protocol. Sugar still running high. Add Lantus 15 units twice daily. Anxiety/depression: Xanax 0.25 3 times daily if needed for anxiety. Will add Remeron at bedtime. Morbid obesity/possible obstructive sleep apnea: Patient states his has been telling him that he has had occasional episodes of apnea while sleeping at night. Patient will need to have outpatient sleep study once financial analyst intern kicks in. Discussed with patient detail regarding need of pain losing some weight and other lifestyle modifications. Carb consistent low-salt diet. Heparin for DVT prophylaxis Famotidine for PUD prophylaxis Case management consult as patient does not have any insurance at present and would most likely need a primary care provider at [facility]. Attestations Medical Necessity Statement*: Needs further hospitalization for management of hypoxia due to congestive heart failure. Uncontrolled diabetes, rule out ischemic cardiomyopathy, COVID-19 not ruled out. Time Spent in Patient Care: Greater than 35 minutes (>than 50% of time spent in counselling and/or direct pt care on unit). Coding Level of Care Code Acute Minute Clerk For Basic Traffic for Keving Fwd Diagnoses Hypoxia R09.02 CHF (congestive heart failure), NYHA class III I50.9 Cardiomyopathy I42.9 Type 2 diabetes mellitus E11.9 Hyponatremia E87.1 Morbid obesity E66.01 Obstructive sleep apnea G47.33
[2020-08-22] MEDS: insulin glargine 100 units/1 mL 15 UNIT SUBCUT ×2 (13:44→20:55)
[2020-08-22] MEDS: ALPRAZolam 0.5 mg Tablet PO ×2 (13:55→20:55)
[2020-08-22 16:50] LABS: Glucose Point of Care 293 mg/dL (70-110)
[2020-08-22] MEDS: metoprolol tartrate 50 mg Tablet PO (18:06)
[2020-08-22 20:52] LABS: Glucose Point of Care 380 mg/dL (70-110)
[2020-08-22] MEDS: mirtazapine 30 mg Tablet PO (20:55)
[2020-08-22] MEDS: trazodone 100 mg Tablet PO (20:55)
[2020-08-22 23:43] LABS: Quest SARS-CoV-2 RNA NOT DETECTED (NOT DETECTED)
--- NOTE | 2020-08-22 23:49 | PC.NURSE ---
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 Will attempt to put it on him again at a later time.
[2020-08-23] VITALS (10 sets, daily range): BP systolic 90–134; BP diastolic 60–90; PULSE 76–89; RESP 17–30; TEMP 36.5–36.7; O2SAT 92–98
[2020-08-23] MEDS: famotidine 20 mg/2 mL INJ IVP ×3 (05:23→20:18)
[2020-08-23 06:43] LABS: Glucose Point of Care 258 mg/dL (70-110)
[2020-08-23] MEDS: lisinopril 10 mg Tablet PO (08:14)
[2020-08-23] MEDS: heparin 5,000 unit/mL INJ 1 mL 5000 UNIT SUBCUT ×3 (08:14→22:54)
[2020-08-23] MEDS: metoprolol tartrate 50 mg Tablet PO ×2 (08:14→18:12)
[2020-08-23 08:30] LABS: Estmated Average Glucose 255; Hemoglobin A1C 10.5 % (4.0-6.0)
[2020-08-23 08:46] LABS: Alanine Aminotransferase 24 U/L (0-41); Albumin Level 3.5 g/dL (3.5-5.2); Alkaline Phosphatase 103 IU/L (40-130); Aspartate Amino Transferase 27 U/L (0-40); Blood Urea Nitrogen 31 mg/dL (6-20); Calcium 9.4 mg/dL (8.5-10.5); Carbon Dioxide 26 mmol/L (22-29); Chloride 100 mmol/L (98-107); Globulin 3.5 g/dL (1.3-4.6); Glucose 314 mg/dL (65-115); Osmolality Calculated 307 mOsm/kg (285-295); Sodium 139 mmol/L (136-145); Total Bilirubin 0.4 mg/dL (0.15-1.2)
[2020-08-23] MEDS: ALPRAZolam 0.5 mg Tablet PO ×2 (08:52→20:17)
[2020-08-23] MEDS: insulin glargine 100 units/1 mL 25 UNIT SUBCUT ×2 (08:56→20:18)
[2020-08-23] MEDS: FUROsemide 10 mg/mL SDV 4mL 40 MG IVP (09:05)
[2020-08-23 10:54] LABS: Glucose Point of Care 332 mg/dL (70-110)
--- NOTE | 2020-08-23 11:17 | ECG_ITS ---
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 Measurements Intervals [place] Rate: 81 P: 13 [place]: 185 QRS: -89 QRSD: 97 T: 41 QT: 427 QTc: 497 Interpretive Statements SINUS RHYTHM LEFT ATRIAL ENLARGEMENT [-0.15mV P WAVE IN V1/V2] INDETERMINATE AXIS PATTERN CONSISTENT WITH PULMONARY DISEASE PROLONGED QT INTERVAL Compared to ECG 08/21/2020 18:38:24 Indeterminate axis now present Prolonged QT interval now present Sinus tachycardia no longer present Left-axis deviation no longer present Electronically Signed On 08-23-2020 19:50:16 CDT by Emiliano Branch M.D. [id number]
--- NOTE | 2020-08-23 11:20 | XRR_ITS ---
PROCEDURE INFORMATION: Exam: XR Chest, 1 View Exam date and time: 08/23/2020 11:20 AM Age: 34 years old Clinical indication: Shortness of breath; Additional info: Chf TECHNIQUE: Imaging protocol: XR of the chest Views: 1 view. COMPARISON: CR XR chest 1V portable [id number] 08/21/2020 9:13 AM FINDINGS: Lungs: Unremarkable. No consolidation. Pleural space: Unremarkable. No pleural effusion. No pneumothorax. Heart/Mediastinum: Unremarkable. There is cardiomegaly for projection. Bones/joints: Unremarkable. XR/XR chest 1V portable [id number] IMPRESSION: 1. No acute findings. 2. Cardiomegaly for projection
[2020-08-23 11:21] LABS: ABG PCO2 38.4 mmHg (35-45); ABG PH Result 7.44 (7.35-7.45); Arterial Blood Gas Hematocrit 47.2 % (42-52); Base Excess ABG 2.2 mmol/L (-2.0-2.0); Blood Gas Allen Test Pos; Blood Gas Operator Identificat glc; Blood Gas Sample Site Radial, left; Blood Gas Sample Type Arterial; HCO3 ABG 26.3 mmol/L (22-26); Oxygen Device ROOM AIR; PO2 ABG 64.8 mmHg (80.0-100.0)
--- NOTE | 2020-08-23 11:21 | P.PN_ITS ---
Subjective Subjective: Interval history: Document overnight. Patient today morning on examination was extremely anxious. He was saturating 92% on room air. COVID-19 results came back negative. Denies of any chest pain, nausea, vomiting, headache. He continues to remain anxious about his long-term life. Complaining of mild chest tightness today. Vitals/I&O/Wt Last Vital Signs Temp 98.0 F 08/23/20 11:11 Pulse 80 08/23/20 11:11 Resp 30 H 08/23/20 11:11 BP 90/62 08/23/20 11:11 Pulse Ox 92 08/23/20 11:11 08/22/20 08/23/20 08/23/20 22:59 06:59 14:59 Intake Total 360 / 600 831 / 1431 240 / 240 Output Total 2700 / 2700 2550 / 5250 Balance -2340 / -2100 -1719 / -3819 240 / 240 Weight last 48 hrs Weight 143.789 kg Weight 145.875 kg Physical Exam Narrative: EXAM NARRATIVE: General: No acute distress, AO x3, morbidly obese, anxious HEENT: PERRLA, pupils bilaterally equal and reactive Chest: Normal vesicular breath sounds, lateral lower zone fine crackle equal good air entry bilaterally CVS: S1-S2 regular, apex shifted laterally and outside, pansystolic murmur at apex 3/6 radiating to axilla, S3 gallop, no tachycardia, no gallops, no rubs Abdomen: Soft, nontender, no organomegaly, bowel sounds present Neuro: No focal deficits, no facial deformity, AO x3, power 5/5 in all limbs Data : 08/22/20 11:54 08/23/20 08:00 A&P Assessment and plan (1) Hypoxia: Status: Acute (2) CHF (congestive heart failure), NYHA class III: Status: Acute (3) Cardiomyopathy: Status: Acute (4) Type 2 diabetes mellitus: Status: Acute (5) Hyponatremia: Resolving. Most likely hypervolemic hyponatremia. Diuretics as above. Continue to monitor sodium levels daily. Patient at present patient does not have any symptoms of hyponatremia. Status: Acute (6) Morbid obesity: Status: Acute (7) Obstructive sleep apnea: Status: Acute Additional A&P Information Hypoxia: Because of congestive heart failure: NYHA class III. Patient states she has a history of cardiomyopathy in the past but not sure what kind of cardiomyopathy. Patient does give history of IV drug abuse in the past and marijuana use at present. Drug screen, alcohol level negative. TSH, procalcitonin, vitamin B12, folate levels normal, HIV, hepatitis panel negative. Echocardiogram shows an EF of 38% with global diffuse hypokinesia, dilated LV, dilated RV with reduced RV systolic functions, moderately dilated RA and LA, mild MR, mild TR. Switch IV Lasix to oral 40 mg twice daily Strict input output charting. Patient is around 1700 cc negative since admission Daily weights. Oxygen supplementation keeping saturation over 90%. Fluid restriction to 1500 cc Patient requires work-up to rule out ischemic cardiomyopathy. N.p.o. after midnight for Lexiscan tomorrow morning. Patient has tolerated Coreg well but his heart rate continues to remain on the higher side. Tolerating metoprolol well. Continue with 50 mg twice daily. Complaining of chest tightness and cough on lisinopril. Chest x-ray, ABG, EKG looks stable. We will switch lisinopril to losartan 25 mg daily from tomorrow. Will uptitrate losartan as per the renal functions and blood pressure and try to add spironolactone if possible. Rapid Covid antigen was negative in the ER. COVID-19 ruled out. Remove isolation precautions. Type 2 diabetes mellitus:. Insulin sliding scale at high-dose protocol. Sugar still running high. We will increase Lantus to 25 mg twice daily Anxiety/depression: Xanax 0.25 3 times daily if needed for anxiety. Continue with trazodone at night. Morbid obesity/possible obstructive sleep apnea: Patient states his has been telling him that he has had occasional episodes of apnea while sleeping at night. We will do overnight pulse oximetry to check for sleep apnea. Discussed with patient detail regarding need of pain losing some weight and other lifestyle modifications. Carb consistent low-salt diet. Heparin for DVT prophylaxis Famotidine for PUD prophylaxis Case management consult as patient does not have any insurance at present and would most likely require financial assistance and primary care provider. Attestations Medical Necessity Statement*: Patient requires further hospitalization for management of congestive heart failure and to rule out ischemic cardiomyopathy with stress test tomorrow morning along with uncontrolled type 2 diabetes mellitus. Time Spent in Patient Care: Greater than 35 minutes (>than 50% of time spent in counselling and/or direct pt care on unit) . Coding Level of Care Code Acute Supervisor Word Processing for Chg Fwd Diagnoses Hypoxia R09.02 CHF (congestive heart failure), NYHA class III I50.9 Cardiomyopathy I42.9 Type 2 diabetes mellitus E11.9 Hyponatremia E87.1 Morbid obesity E66.01 Obstructive sleep apnea G47.33
[2020-08-23 11:23] LABS: Blood Gas CCRB Time 1130
[2020-08-23 16:19] LABS: Glucose Point of Care 334 mg/dL (70-110)
[2020-08-23] MEDS: FUROsemide 40 mg Tablet PO (18:12)
--- NOTE | 2020-08-23 19:24 | PC.NURSE ---
Patient refused temp to be taken at this time stating I am starving and too thirsty so the machine will not read at his time. This nurse educated importance of getting all vitals and patient has agreed to allow this nurse to take him temp when getting his accu check.
[2020-08-23 20:10] LABS: Glucose Point of Care 274 mg/dL (70-110)
[2020-08-23] MEDS: trazodone 100 mg Tablet PO (20:18)
--- NOTE | 2020-08-23 20:30 | PC.NURSE ---
Patient has no complaints at this time. Patient educated on diet order and NPO after midnight status, and use of urinal for accurate output measurement. Patient verbalized understanding of all teachings.
--- NOTE | 2020-08-23 21:04 | PC.NURSE ---
Patient has no complaints at this time. Patient was educated on NPO after midnight status for stress test and verbalized understanding.
[2020-08-24] VITALS (7 sets, daily range): BP systolic 100–128; BP diastolic 64–96; PULSE 75–98; RESP 13–23; TEMP 36.6–36.7; O2SAT 94–98
--- NOTE | 2020-08-24 04:42 | PC.NURSE ---
Patient states God maura, I want all these wires off me, I'm so sick of them. Patient was educated that he has the right to refuse to wear them, however it is to his benefit to wear them so that we can monitor his heart. Patient states fine, I'll leave them on, but they better get me out of here today. Will monitor.
--- NOTE | 2020-08-24 05:17 | PC.NURSE ---
Unable to locate patient's urinal. There was urine in the toilet. Patient was asked if he used the toilet instead of using the urinal throughout the night and stated no. Patient was provided a new urinal and voided 200 mL.
[2020-08-24 05:25] LABS: Basophils % 0.3 %; Eosinophils # 0.2 10^3/uL (0.0-0.8); Eosinophils % 2.3 %; Hematocrit 43.6 % (42.0-52.0); Hemoglobin 13.9 g/dL (11.7-16.6); Lymphocytes # 2.3 10^3/uL (0.8-4.8); Mean Corpuscular HGB Conc 31.9 g/dL (30.0-36.0); Mean Corpuscular Volume 90.8 fL (80-94); Mean Platelet Volume 10.9 fL (7.4-10.4); Monocytes # 0.6 10^3/uL (0.2-0.9); Monocytes % 9.7 %; Neutrophils # 3.52 10^3/uL (1.8-7.7); Neutrophils % 53.2 %; Nucleated Red Blood Cells % 0 %; Platelet Count 211 10^3/cmm (130-400); Red Cell Distribution Width 13.7 % (12.1-15.1); White Blood Count 6.6 10^3/uL (4.0-10.0)
[2020-08-24] MEDS: ALPRAZolam 0.5 mg Tablet PO ×4 (05:34→21:15)
[2020-08-24] MEDS: acetaminophen 325 mg Tablet 650 MG PO ×3 (05:37→21:13)
--- NOTE | 2020-08-24 05:39 | PC.NURSE ---
Patient has been non-compliant with fluid restriction. Patient has been educated on fluid restriction and verbalized understanding.
[2020-08-24 05:48] LABS: Alanine Aminotransferase 29 U/L (0-41); Albumin Level 3.6 g/dL (3.5-5.2); Alkaline Phosphatase 107 IU/L (40-130); Anion Gap 14.4 (5-19); Aspartate Amino Transferase 30 U/L (0-40); Blood Urea Nitrogen 43 mg/dL (6-20); Calcium 9.2 mg/dL (8.5-10.5); Carbon Dioxide 26 mmol/L (22-29); Chloride 100 mmol/L (98-107); Globulin 3.3 g/dL (1.3-4.6); Glomerular Filtration Rate 68.9 mL/min (90-130); Glucose 243 mg/dL (65-115); Osmolality Calculated 301 mOsm/kg (285-295); Potassium 4.4 mmol/L (3.5-5.1); Sodium 136 mmol/L (136-145); Total Bilirubin 0.3 mg/dL (0.15-1.2); Total Protein 6.9 g/dL (6.6-8.7)
[2020-08-24 06:53] LABS: Glucose Point of Care 274 mg/dL (70-110)
--- NOTE | 2020-08-24 07:00 | ECG_ITS ---
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 Interpretive Statements NAME OF STUDY: LEXISCAN SESTAMIBI STRESS TEST INDICATION: Chest Pain, PROCEDURE: At the baseline, the EKG revealed normal sinus rhythm with a poor R wave progression. Possible right atrial enlargement. Some nonspecific T wave changes. The baseline blood pressure was 111/74 mm Hg with a heart rate of 91 beats/min. Lexiscan was infused over a period of 20 seconds. A total of 0.4 milligrams of Lexiscan was infused. The stress phase was continued for a total of 5 minutes. Heart rate at the end of the stress phase was 91 with a blood pressure 125/84. The EKG at the peak infusion revealed no significant changes. Sestamibi was injected 20 seconds after the Lexiscan infusion. During the recovery phase, the blood pressure went up to 248/72 blood pressure at the end of the recovery phase was 94/71 with a heart rate of 91 per minute. CONCLUSION: 1. No significant EKG changes with the LexiScan infusion 2. No LexiScan induced chest pain or cardiac arrhythmia 3. Normal blood pressure and heart rate response 4. Sestamibi/sestamibi perfusion scan pending; see separate report. Electronically Signed On 08-24-2020 21:59:51 CDT by Emiliano Branch M.D. [id number]
--- NOTE | 2020-08-24 07:52 | PC.NURSE ---
[address] [facility] med[address]
[2020-08-24] MEDS: regadenoson 0.4 Mg/5 ml Syringe IVP (08:24)
[2020-08-24] MEDS: aminophylline 25 mg/mL SDV 10 mL IVP (08:30)
[2020-08-24] MEDS: insulin glargine 100 units/1 mL 25 UNIT SUBCUT (10:42)
[2020-08-24] MEDS: FUROsemide 40 mg Tablet PO (10:45)
[2020-08-24] MEDS: heparin 5,000 unit/mL INJ 1 mL 5000 UNIT SUBCUT ×2 (10:46→15:58)
[2020-08-24 10:51] LABS: Glucose Point of Care 341 mg/dL (70-110)
[2020-08-24] MEDS: metoprolol tartrate 50 mg Tablet PO ×2 (11:01→17:14)
[2020-08-24] MEDS: famotidine 20 mg Tablet PO ×2 (11:02→21:13)
[2020-08-24] MEDS: losartan 50 mg Tablet 25 MG PO (11:02)
--- NOTE | 2020-08-24 11:15 | PC.NURSE ---
Patient states he is able and has been giving his own insulin prior to tjis hospitalization. 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 Patient states his has also been taught in providing insulin injections.
--- NOTE | 2020-08-24 11:19 | P.PN_ITS ---
Subjective Subjective: Interval history: This morning patient was examined in the cardiac stress lab, he is a bit teary this morning, because of the radiation dye that he received, he got a little bit of a high off of it, states that it feels like he is relapse, patient states that he has not used drugs in over a year, and is proud of not using any drugs, but after he received some of the radiation dye, he got a high, and he feels that he is relapse or cheated he has promised to remain drug-free. I provided reassurance to the patient, we have to give him medication to do the chemical stress test, and does have side effects, apologize to the patient, provided with words of encouragement, congratulated him on his sobriety and that he has not used any illicit drugs. Patient tells me that he still feels a bit short of breath with exertion, but overall doing better, no lightheadedness, no dizziness, no nausea, no vomiting, no chest pain. Patient is concerned as he does not have insurance, he is worried about affordability of his medications. He is worried that his current medical condition will hold him back in terms of taking care of his family financially, and holding him back at work. Vitals/I&O/Wt Last Vital Signs Temp 98.0 F 08/24/20 10:33 Pulse 98 08/24/20 10:33 Resp 22 H 08/24/20 10:33 BP 117/96 08/24/20 11:02 Pulse Ox 97 08/24/20 10:33 08/23/20 08/24/20 08/24/20 22:59 06:59 14:59 Intake Total 940 / 1420 Output Total 350 / 350 Balance 940 / 1420 -350 / 1070 Weight last 48 hrs Weight 147.281 kg Weight 143.789 kg Physical Exam Const: COMMON NORMALS: no acute distress and patient oriented x3 HENMT: COMMON NORMALS: normocephalic HEAD & SCALP: normocephalic Neck/C-Spine: COMMON NORMALS: no JVD Resp: COMMON NORMALS: normal respiratory effort, No retractions, No use of accessory muscles and clear to auscultation bilaterally AUSCULTATION: clear to auscultation bilaterally Cardio: COMMON NORMALS: no JVD, regular rate, regular rhythm, S1 normal heart sound present and S2 normal heart sound present RATE: regular rate RHYTHM: regular rhythm HEART SOUNDS: S1 normal heart sound present and S2 normal heart sound present GI: COMMON NORMALS: Normal to inspection, nondistended, normoactive bowel sounds present, Soft to palpation, non-tender, No hepatosplenomegaly present, no masses and no bruits PALPATION: Yes Soft to palpation and Yes No hepatosplenomegaly present Extremity: COMMON NORMALS: capillary refill normal, no clubbing, cyanosis or edema, no calf tenderness and no pedal edema Neuro: COMMON NORMALS: patient oriented x3 Psych: COMMON NORMALS: mental status grossly normal Data : 08/24/20 05:05 08/24/20 05:05 A&P Assessment and plan (1) Hypoxia: Status: Acute (2) CHF (congestive heart failure), NYHA class III: Status: Acute (3) Cardiomyopathy: Status: Acute (4) Type 2 diabetes mellitus: Status: Acute (5) Hyponatremia: Resolved Most likely hypervolemic hyponatremia. Diuretics as above. Continue to monitor sodium levels daily. Patient at present patient does not h ave any symptoms of hyponatremia. Status: Acute (6) Morbid obesity: Status: Acute (7) Obstructive sleep apnea: Status: Acute Additional A&P Information Hypoxia: Because of congestive heart failure: NYHA class III. Patient states she has a history of cardiomyopathy in the past but not sure what kind of cardiomyopathy. Patient does give history of IV drug abuse in the past and marijuana use at present. Awaiting stress test results, to determine ischemic versus nonischemic Drug screen, alcohol level negative. TSH, procalcitonin, vitamin B12, folate levels normal, HIV, hepatitis panel negative. Echocardiogram shows an EF of 38% with global diffuse hypokinesia, dilated LV, dilated RV with reduced RV systolic functions, moderately dilated RA and LA, mild MR, mild TR. On Lasix p.o. 40 mg twice daily Strict input output charting. Patient is around 1700 cc negative since admission Daily weights. Oxygen supplementation keeping saturation over 90%. Fluid restriction to 1500 cc Patient requires work-up to rule out ischemic cardiomyopat On metoprolol 50 mg twice daily Complaining of chest tightness and cough on lisinopril, thus switched to losartan Will uptitrate losartan as per the renal functions and blood pressure and try to add spironolactone if possible. Rapid Covid antigen was negative in the ER. COVID-19 ruled out. Remove isolation precautions. Type 2 diabetes mellitus: Poorly controlled, hemoglobin A1c 10.5 Insulin sliding scale at high-dose protocol. Sugar still running high. Lantus increased to 25 mg twice daily, will try 7030 starting this evening Anxiety/depression: Xanax 0.25 3 times daily if needed for anxiety. Continue with trazodone at night. Morbid obesity/possible obstructive sleep apnea: Patient states his has been telling him that he has had occasional episodes of apnea while sleeping at night. We will do overnight pulse oximetry to check for sleep apnea. Discussed with patient detail regarding need of pain losing some weight and other lifestyle modifications. Carb consistent low-salt diet. Heparin for DVT prophylaxis Famotidine for PUD prophylaxis Case management consult as patient does not have any insurance at present and would most likely require financial assistance and primary care provider. Attestations Medical Necessity Statement*: Patient requires hospitalization for hypoxia secondary to heart failure Coding Level of Care Code Acute Director Of Marketing Analytics for Patt Galeano Diagnoses Hypoxia R09.02 CHF (congestive heart failure), NYHA class III I50.9 Cardiomyopathy I42.9 Type 2 diabetes mellitus E11.9 Hyponatremia E87.1 Morbid obesity E66.01 Obstructive sleep apnea G47.33
--- NOTE | 2020-08-24 11:19 | NMCV_ITS ---
NM zahida perf SPECT r/s* [id number] Roberto Menjivar Age: 34 Gender: M : 1985 Exam Date: 08/24/2020 06:59 Ordering Phys: Mike Cardenas MD Technologist: JIMMY Felix Exam Location: [facility] [address] Indications: CHEST PAIN SOB COUGH STRESS TEST Please see separate stress test report in [facility] for full findings IMAGE PROTOCOL Rest/Stress 1 Lexiscan Day Radiopharmaceutical Dose (mCi) Administration Site Administered by Rest: Tc-99m 11.0 IV JIMMY Singer Sestamibi Stress:Tc-99m 33.0 IV JIMMY Singer Sestamibi Rest: 24-Aug-2020 60 Discovery 630 Stress: 24-Aug-2020 30 Discovery 630 0.4mg Lexiscan. Supine position only as patient was unable to lay prone. SPECT RESULTS Technical Quality: Excellent Raw Data Analysis: Normal Image Corrections: No attenuation or motion correction applied Summed Stress Score: 6 Summed Rest Score: 13 Summed Difference Score: 0 PERFUSION FINDINGS Small to moderate area of decreased aseptic were noted in the mid and apical anterior, inferior and apical regions. No significant reversibility was noted in these regions. FUNCTIONAL RESULTS (calculated via Gated SPECT) Stress Image LV EF (%): 20 Stress EDV (mL):318 TID: 1.05 Stress ESV (mL):254 FUNCTIONAL FINDINGS: Segmental wall motion analysis revealed a severe diffuse hypokinesia of left ventricle. IMPRESSIONS 1. Myocardial perfusion may revealing small to moderate areas of persistent decreases uptake in the anterior wall and inferior wall regions suggestive of myocardial scarring versus attenuation artifacts. 2. Markedly diminished LV ejection fraction of 20% 3. LV wall motion analysis revealing severe diffuse hypokinesia of the left ventricle 4. Markedly dilated left ventricular cavity with an end-systolic volume of 254 mL The above features may suggest some form of nonischemic cardiomyopathy with no significant coronary ischemia Dr Emiliano Branch MD FACC (Electronically Signed) Final Date: 24 August 2020 12:42 S
--- NOTE | 2020-08-24 12:30 | PC.NURSE ---
Patient given jnsulin at 1034 post nuclear medicine test.
[2020-08-24] MEDS: TRAMadol 50 mg Tablet 25 MG PO (17:13)
[2020-08-24 20:19] LABS: Glucose Point of Care 367 mg/dL (70-110)
[2020-08-24 20:19] LABS: Glucose Point of Care 439 mg/dL (70-110)
--- NOTE | 2020-08-24 20:41 | PC.NURSE ---
Patient complaint of a 9/10 headache despite PRN medications. Called placed to Dr. Mancia. Provider will review chart and place orders.
[2020-08-24] MEDS: trazodone 100 mg Tablet PO (21:13)
[2020-08-24] MEDS: insulin aspart 70/30 100 units/1 mL 20 UNIT SUBCUT (21:14)
--- NOTE | 2020-08-24 21:30 | PC.NURSE ---
While passing Medications asked patient if he would wear his heart monitor patient stated he would try. Patient states he feels strapped down. Explained the reasoning behind the telemetry. Patient given snacks as requested. Patient did not want midnight vitals if he was asleep or his heparin injection. Patient stated he had a rough day and just wants to sleep. Patient did not want his blood sugar rechecked post insulin administration and states he knows the signs and symptoms of hypoglycemia.
--- NOTE | 2020-08-24 23:54 | PC.NURSE ---
Dr. Mancia made aware patient refused his heparin shot and 0000 vitals due to wanting to sleep.
[2020-08-25 03:42] VITALS: BP 111/75; PULSE 72; RESP 18; TEMP 36.3; O2SAT 97
--- NOTE | 2020-08-25 04:56 | PC.NURSE ---
Patient refusing labs at this time. States he wants it done later .
--- NOTE | 2020-08-25 05:21 | PC.NURSE ---
Dr. Mancia aware of patient refusal to wear telemetry this shift due to wanting to sleep. telemetry in floor.
[2020-08-25 06:00] VITALS: BMI 50.9
[2020-08-25 06:19] LABS: Glucose Point of Care 156 mg/dL (70-110)
[2020-08-25 06:47] VITALS: BP 93/60; PULSE 71; RESP 20; TEMP 36.7; O2SAT 99
--- NOTE | 2020-08-25 07:00 | PC.NURSE ---
patient noted not to be on tele monitoring when patient asked to replace the monitor so his heart could be monitor patient refused reports he don't like having the wires on
--- NOTE | 2020-08-25 08:05 | PC.NURSE ---
0805 Dr Spear at bedside for rounding and assessment Dr made aware of patient refusal to comply with tele monitoring also IV access was lost sometime through the night no new instructions at this time patient reports he dose not want to have another IV.
[2020-08-25 08:06] VITALS: BP 128/79
[2020-08-25] MEDS: ALPRAZolam 0.5 mg Tablet PO (08:06)
[2020-08-25] MEDS: losartan 50 mg Tablet 25 MG PO (08:06)
[2020-08-25] MEDS: famotidine 20 mg Tablet PO (08:06)
[2020-08-25] MEDS: metoprolol tartrate 50 mg Tablet PO (08:06)
[2020-08-25] MEDS: heparin 5,000 unit/mL INJ 1 mL 5000 UNIT SUBCUT (08:08)
[2020-08-25] MEDS: FUROsemide 40 mg Tablet PO (08:08)
[2020-08-25] MEDS: insulin aspart 70/30 100 units/1 mL 20 UNIT SUBCUT (08:09)
[2020-08-25 08:11] LABS: Basophils % 0.3 %; Eosinophils # 0.1 10^3/uL (0.0-0.8); Eosinophils % 1.9 %; Hematocrit 45.4 % (42.0-52.0); Hemoglobin 14.7 g/dL (11.7-16.6); Lymphocytes # 2.2 10^3/uL (0.8-4.8); Mean Corpuscular HGB Conc 32.4 g/dL (30.0-36.0); Mean Corpuscular Hemoglobin 29.3 pg (28.0-34.0); Mean Corpuscular Volume 90.4 fL (80-94); Mean Platelet Volume 10.9 fL (7.4-10.4); Monocytes # 0.5 10^3/uL (0.2-0.9); Monocytes % 8.1 %; Neutrophils # 3.02 10^3/uL (1.8-7.7); Neutrophils % 51.4 %; Nucleated Red Blood Cells % 0.3 %; Platelet Count 214 10^3/cmm (130-400); Red Blood Count 5.02 10^6/uL (4.1-5.3); Red Cell Distribution Width 13.9 % (12.1-15.1); White Blood Count 5.9 10^3/uL (4.0-10.0)
[2020-08-25 08:39] LABS: Alanine Aminotransferase 53 U/L (0-41); Albumin Level 3.9 g/dL (3.5-5.2); Alkaline Phosphatase 137 IU/L (40-130); Anion Gap 16.7 (5-19); Aspartate Amino Transferase 56 U/L (0-40); Blood Urea Nitrogen 52 mg/dL (6-20); Calcium 8.9 mg/dL (8.5-10.5); Carbon Dioxide 26 mmol/L (22-29); Chloride 97 mmol/L (98-107); Globulin 3.4 g/dL (1.3-4.6); Glomerular Filtration Rate 68.9 mL/min (90-130); Glucose 193 mg/dL (65-115); Magnesium 2.4 mg/dL (1.7-2.3); Osmolality Calculated 299 mOsm/kg (285-295); Phosphorus 5.4 mg/dL (2.5-4.5); Potassium 4.7 mmol/L (3.5-5.1); Sodium 135 mmol/L (136-145); Total Bilirubin 0.4 mg/dL (0.15-1.2); Total Protein 7.3 g/dL (6.6-8.7)
[2020-08-25 10:43] VITALS: BP 96/54; PULSE 79; RESP 19; O2SAT 98
[2020-08-25 11:03] LABS: Glucose Point of Care 233 mg/dL (70-110)
[2020-08-25 11:03] LABS: Glucose Point of Care 242 mg/dL (70-110)
[2020-08-25] MEDS: acetaminophen 325 mg Tablet 650 MG PO (11:22)
--- NOTE | 2020-08-25 12:14 | P.DS_ITS ---
Discharge Providers Date of Admission: 08/21/20 13:02 Date of Discharge: August 25, 2020 Attending Provider at Admission: Sandoval Gracia MD Attending Provider at Discharge: Manuelito Spear MD Diagnoses at Discharge Discharge Diagnosis (1) Hypoxia: Status: Acute (2) CHF (congestive heart failure), NYHA class III: Status: Acute Problem details: EF 38% with dilated LA, RA, LV, RV with decreased systolic function of both LV and RV. (3) Cardiomyopathy: Status: Acute (4) Type 2 diabetes mellitus: Status: Acute (5) Hyponatremia: Status: Acute (6) Morbid obesity: Status: Acute (7) Obstructive sleep apnea: Status: Acute Reason for Visit Reason for Visit: CHEST PAIN/ SOB/ COUGH Hospital Course Discharge Summary: This is a 34-year-old male with a past medical history of IV drug use, sober for the last year, current smoker, history of morbid obesity, history of congestive heart failure noncompliant with medications, history of insulin-dependent type 2 diabetes mellitus noncompliant with medications who presents to [facility] due to complaints of chest pain, shortness of breath Patient was admitted to [facility] for acute respiratory failure secondary to systolic CHF exacerbation, patient received Lasix, metoprolol, losartan, daily fluid restrictions, urine output was monitored, and patient clinically improved, he was diuresed roughly 7.6 L. He clinically improved, not requiring any oxygen, ambulating without significant symptomatology. Patient will be discharged on losartan, metoprolol, Lasix, aspirin, statin with close follow-up with primary care provider in 1 week, and cardiology in 1 month. Patient had a cardiac stress test as inpatient to evaluate for ischemic cardiomyopathy, cardiac echocardiogram showed diffuse hypokinesia of the left ventricle with an ejection fraction of 30%, mildly dilated right ventricle with a slightly reduced ejection fraction, moderate biatrial enlargement. Patient had a cardiac stress test which showed small to moderate areas of persistent decrease uptake in the anterior lynn, and inferior wall region suggestive of myocardial scarring versus attenuation artifact, left ventricular wall motion analysis revealing severe diffuse hypokinesia of the left ventricle, markedly dilated left ventricular cavity with an systolic volume of 254, likely indicating a nonischemic cardiomyopathy, with a low likelihood of coronary ischemia. I advised patient that it is likely he has nonischemic cardiomyopathy, however given his noncompliance, and risk factors there is always a risk of coronary artery disease that is not detectable on the stress test. I advised patient to continue aspirin, statin, be compliant with medications, and if he were to have repeatchest pain or shortness of breath to come to the emergency room. In addition I have advised patient to quit smoking. Patient has been sober off IV drugs for the last year, and is fairly reliable, and is actually eager to start working as he wants to help support his family. For his insulin-dependent type 2 diabetes mellitus, patient has been without medication for quite some time, advised of compliance, discharged on NovoLog 70/30 23 units every 12 hours, advised patient to record blood sugars in a blood sugar log, follow-up with primary care in 1 week with blood sugar logs. If blood sugar greater than 500 call primary care or go to the emergency room. If blood sugar is less than 60 drink or juice and call primary care or go to the emergency room. I also clinically suspect a significant proportion of obstructive sleep apnea, and at least a CPAP will help patients heart failure, however he does not have insurance. I have advised patient to follow-up with his primary care provider for a sleep study, hopefully he will have enough funds to undergo the study, and to get a CPAP machine. Unfortunately patient does not have any insurance, we are working on Medicare and nish application, patient should follow-up with his primary care physician, patient is eager to start work so he will try to earn some income to play for his medications, he is also being set up with a [address] provider. Patient was advised of compliance with medical therapy, compliance with medical follow-up, as his condition carries a significant morbidity and mortality. Patient voices headache, all questions answered, agreed. Discharge Data Data Completed and Pending: Completed Studies During Hospitalization Category Date Time Status Sestamibi Stress Test Request Routi ne Exams 08/24/20 07:00 Completed XR chest 1V ashley ble [id number] Routine Exams 08/23/20 11:20 Completed XR chest 1V ashley ble [id number] Stat Exams 08/21/20 09:11 Completed NM zahida perf SPECT r/s* [id number] Routin e Nuc Med 08/24/20 11:19 Completed CV echo complete* [id number] Urgent Ultrasound 08/21/20 09:54 Completed Pending at discharge Category Date Time Status Sestamibi Stress Test Request Routi ne Exams 08/22/20 06:00 Ordered Complete Blood Co unt w/Auto AM LABS Lab 08/26/20 04:00 Ordered Complete Blood Co unt w/Auto AM LABS Lab 08/27/20 04:00 Ordered Comprehensive Met abolic Panel AM LA BS Lab 08/26/20 04:00 Ordered Comprehensive Met abolic Panel AM LA BS Lab 08/27/20 04:00 Ordered Magnesium AM LABS Lab 08/26/20 04:00 Ordered Magnesium AM LABS Lab 08/27/20 04:00 Ordered Phosphorus AM LAB S Lab 08/26/20 04:00 Ordered Phosphorus AM LAB S Lab 08/27/20 04:00 Ordered Labs from last 24 hours 08/25/20 08/25/20 08/25/20 10:39 10:38 07:50 WBC RBC Hgb Hct MCV MCH MCHC RDW Plt Count MPV Neut % (Auto) Lymph % (Auto) Garland % (Auto) Eos % (Auto) Baso % (Auto) Neut # (Auto) Lymph # (Auto) Garland # (Auto) Eos # (Auto) Baso # (Auto) Nucleated RBC % (a uto) Nucleated RBCs # Sodium 135 L Potassium 4.7 Chloride 97 L Carbon Dioxide 26 Anion Gap 16.7 BUN 52 H Creatinine 1.2 GFR Calculation 68.9 L Glucose 193 H POC Glucose 242 233 Calculated Osmolal ity 299 H Calcium 8.9 Phosphorus 5.4 H Magnesium 2.4 H Total Bilirubin 0.4 AST 56 H ALT 53 H Alkaline Phosphata se 137 H Total Protein 7.3 Albumin 3.9 Globulin 3.4 08/25/20 08/25/20 08/24/20 07:50 06:07 20:12 WBC 5.9 RBC 5.02 Hgb 14.7 Hct 45.4 MCV 90.4 MCH 29.3 MCHC 32.4 RDW 13.9 Plt Count 214 MPV 10.9 H Neut % (Auto) 51.4 Lymph % (Auto) 38.0 Garland % (Auto) 8.1 Eos % (Auto) 1.9 Baso % (Auto) 0.3 Neut # (Auto) 3.02 Lymph # (Auto) 2.2 Garland # (Auto) 0.5 Eos # (Auto) 0.1 Baso # (Auto) 0.0 Nucleated RBC % (a uto) 0.3 Nucleated RBCs # 0.0 Sodium Potassium Chloride Carbon Dioxide Anion Gap BUN Creatinine GFR Calculation Glucose POC Glucose 156 439 Calculated Osmolal ity Calcium Phosphorus Magnesium Total Bilirubin AST ALT Alkaline Phosphata se Total Protein Albumin Globulin 08/24/20 17:19 WBC RBC Hgb Hct MCV MCH MCHC RDW Plt Count MPV Neut % (Auto) Lymph % (Auto) Garland % (Auto) Eos % (Auto) Baso % (Auto) Neut # (Auto) Lymph # (Auto) Garland # (Auto) Eos # (Auto) Baso # (Auto) Nucleated RBC % (a uto) Nucleated RBCs # Sodium Potassium Chloride Carbon Dioxide Anion Gap BUN Creatinine GFR Calculation Glucose POC Glucose 367 Calculated Osmolal ity Calcium Phosphorus Magnesium Total Bilirubin AST ALT Alkaline Phosphata se Total Protein Albumin Globulin Vitals: Last Vital Signs Temp 98.0 F 08/25/20 06:47 Pulse 79 08/25/20 10:43 Resp 19 H 08/25/20 10:43 BP 96/54 08/25/20 10:43 Pulse Ox 98 08/25/20 10:43 Discharge Plan Discharge Patient Disposition: Home Condition: Stable Prescriptions: New furosemide 40 mg Tablet 40 mg PO BID@08,16 30 Days Qty: 60 RF: 0 Novolog Mix 70-30 U-100 Insuln 100 unit/mL (70-30) Solution 23 unit SUBCUT Q12H 30 Days Qty: 20 RF: 0 losartan 50 mg Tablet 25 mg PO DAILY 30 Days Qty: 30 RF: 0 metoprolol tartrate 50 mg Tablet 50 mg PO BID 30 Days Qty: 60 RF: 0 aspirin 81 mg tablet,delayed release (DR/EC) 81 mg PO DAILY 30 Days Qty: 30 RF: 0 atorvastatin 40 mg tablet 40 mg PO DAILY 30 Days Qty: 30 RF: 0 (DME) Glucometer See Rx Instructions .Route .MEDSUPPLY Qty: 1 RF: 0 (DME) insulin syr/ndl U100 half dahlia 0.3 mL 29 gauge x 1/2 syringe See Rx Instructions .ROUTE .MEDSUPPLY Qty: 100 RF: 0 (DME) Advocate Syringes 0.3 mL 29 gauge x 1/2 syringe See Rx Instructions .ROUTE .MEDSUPPLY Qty: 100 RF: 0 trazodone 100 mg Tablet 100 mg PO BEDTIME 30 Days Qty: 30 RF: 0 Discontinued torsemide 20 mg Tablet 40 mg PO DAILY RF: 0 insulin asp prt-insulin aspart [Novolog Mix 70-30 U-100 Insuln] 100 unit/mL (70-30) Solution See Rx Instructions .ROUTE .COMPLEX RF: 0 Discharge Orders: Discharge Order (Routine); Ordered 08/25/20 Ordered By: Manuelito Spear Other Ambulatory Orders: Comprehensive Metabolic Panel (Routine) Timeframe: 1 Week Facility: [facility] - Location: Lab - Main Lab Ordered By: Manuelito Spear Referrals: Kathleen Cheema MD [Physician] - 1 month Elsy Whitfield FNP [Nurse Practitioner] - 08/31/20 3:30 pm Discharge Diet: Cardiac Discharge Activity: Resume usual activity Patient Instructions: Metoprolol (By mouth), Furosemide (By mouth), Trazodone (By mouth), Aspirin (By mouth), Losartan (By mouth), Atorvastatin (By mouth), Insulin Aspart Protamine/Insulin Aspart (Injection), Heart Failure (GEN), How to Stop Smoking (GEN), Heart Healthy Diet (DC), Cigarette Smoking and Your Health (GEN), How to Check Your Blood Sugar (DC), Diabetic Foot Care (GEN), Diabetic Hypoglycemia (DC), Diabetes Mellitus Type 2 in Adults (GEN), Weight Management (DC), Basic Carbohydrate Counting (DC), DASH Eating Plan (DC) Activity Restrictions/Additional Instructions: -Please check your blood sugars 3 times daily, record them in a blood sugar log -Please follow-up with primary care in 1 week with blood sugars -If blood sugar greater than 500 go to the emergency room -If blood sugar less than 60, drink orange juice and go to the emergency room -If you have repeat chest pain and shortness of breath please come back to the emergency room -Follow-up with cardiology in 1 month Discharge Attestations Time Spent in Discharge Care*: less than 30 min Quality Metrics Clinical Quality Measures During this hospital stay, did patient experience: None Coding Level of Care Code 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
[2020-08-25 12:43] VITALS: BP 96/54; PULSE 79; RESP 19; TEMP 36.7
--- NOTE | 2020-08-25 14:11 | PC.NURSE ---
Discharge instructions along with all follow up care provided to patient, patient verbalizes understanding of all instructions however is asking questions like Do Have to take my medications everyday and Is it that bad to miss a dose of medications patient educated on significant risks of not taking medications as prescribed patient verbalizes understanding with some resistance
--- NOTE | 2020-08-25 14:36 | PC.NURSE ---
PATIENT TO EXIT VIA WHEELCHAIR WITH NO ISSUES WITH BELONGINGS
== END 2020-08-25 14:37 | disposition home or self-care (01) | DRG 292 ==
LOC: ER 09:03 → MEDSURG 13:37 → CSU 08-23 10:32
PROVIDERS: Admitting Provider Student in an Organized Health Care Education/Training Program; Emergency Provider Family Medicine; Visit Provider Family Medicine
DX: I50.21 Acute systolic (congestive) heart failure (principal); E87.1 Hypo-osmolality and hyponatremia; Z68.43 Body mass index [BMI] 50.0-59.9, adult; I42.9 Cardiomyopathy, unspecified; G47.33 Obstructive sleep apnea (adult) (pediatric); E66.01 Morbid (severe) obesity due to excess calories; R09.02 Hypoxemia; E11.9 Type 2 diabetes mellitus without complications; Z79.4 Long term (current) use of insulin; Z91.14 Patient's other noncompliance with medication regimen; Z20.828 Contact with and (suspected) exposure to other viral communicable diseases; F41.8 Other specified anxiety disorders; Z87.891 Personal history of nicotine dependence; F12.10 Cannabis abuse, uncomplicated
CPT/HCPCS: 12345; 36415; 36416; 36600; 71045; 78452; 80053; 80306; 80307; 81001; 82607; 82728; 82746; 82803; 82962; 82977; 83036; 83540; 83550; 83605; 83735; 84100; 84145; 84443; 84484; 85025; 85378; 85384; 86140; 86705; 86706; 86709; 86803; 87340; 87426; 87635; 87806; 90471; 90686; 93005; 93017; 93306; 94664; 94762; 96372; 96375; 99284; A9500; J0280; J1644; J1815 ×2; J1940; J2785; J3490